=== PATIENT | male | born 1975 | race Caucasian/White ===

== ENCOUNTER 2018-07-07 11:42 | Emergency (ER) | payer OTHER ==
[~2018-07-07] VITALS: Ht 177.8 cm; Wt 90.7 kg
[2018-07-07] MEDS ORDERED: TRAZODONE HCL100 MG PO (11:52)
[2018-07-07] MEDS ORDERED: QUETIAPINE FUM100 MG PO (11:52)
[2018-07-07] MEDS ORDERED: PROZAC20 MG PO (11:53)
[2018-07-07 12:08] LABS: ABSOLUTE LYMPHOCYTES 0.6 thou/uL (0.8-5.3); ABSOLUTE MONOCYTES 0.5 thou/uL (0.0-1.2); ABSOLUTE NEUTROPHILS 4.3 thou/uL (1.6-8.1); BASOPHILS 0.5 %; EOSINOPHILS 0.8 %; HEMATOCRIT 47.4 % (42.0-52.0); HEMOGLOBIN 16.9 gm/dL (14.0-18.0); LYMPHOCYTES 11.2 %; MCH 34.2 pg (26.0-34.0); MCHC 35.6 g/dL (28.0-37.0); MCV 96.1 fL (80.0-100.0); MONOCYTES 8.5 %; MPV 7.1 fl. (7.2-11.1); NUCLEATED RBCS 0 /100WBC; PLATELET COUNT* 226 thou/uL (150-400); RBC 4.93 mil/uL (4.50-6.00); RDW-CV 14.7 % (10.5-14.5); WBC 5.4 thou/uL (4.0-11.0)
[2018-07-07 12:26] LABS: ANION GAP 11 mmol/L (7-16); BUN 8 mg/dL (7-18); CALCIUM 9.6 mg/dL (8.5-10.1); CHLORIDE 100 mmol/L (98-107); CO2 26 mmol/L (21-32); CREATININE 1.1 mg/dL (0.6-1.3); GLUCOSE 129 mg/dL (70-99); POTASSIUM 3.7 mmol/L (3.5-5.1); SODIUM 137 mmol/L (136-145)
[2018-07-07 12:31] LABS: ALBUMIN 4.2 g/dL (3.4-5.0); ALKALINE PHOSPHATASE 123 U/L (46-116); LIPASE 99 U/L (73-393); SGOT 44 U/L (15-37); SGPT 73 U/L (30-65); TOTAL PROTEIN 7.9 g/dL (6.4-8.2); TROPONIN-I LEVEL <0.06 ng/mL (<0.06)
[2018-07-07 13:20] VITALS: BP 136/92
--- NOTE | 2018-07-07 18:09 | EKG ---
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
== END 2018-07-07 13:20 | disposition home or self-care (01) ==
LOC: M.ERS 11:42
PROVIDERS: Family Medicine
DX: R10.31 Right lower quadrant pain (principal); R19.7 Diarrhea, unspecified

== ENCOUNTER 2018-07-07 20:08 | Emergency (ER) | payer OTHER ==
[~2018-07-07] VITALS: Ht 177.8 cm; Wt 110.4 kg
[~2018-07-07 20:08] MED LIST: PROZAC20 MG PO; QUETIAPINE FUM100 MG PO; TRAZODONE HCL100 MG PO
[2018-07-07 20:34] LABS: ABSOLUTE LYMPHOCYTES 1.1 thou/uL (0.8-5.3); ABSOLUTE NEUTROPHILS 6.9 thou/uL (1.6-8.1); BASOPHILS 0.3 %; EOSINOPHILS 0.5 %; HEMATOCRIT 46.7 % (42.0-52.0); HEMOGLOBIN 16.4 gm/dL (14.0-18.0); LYMPHOCYTES 11.7 %; MCH 33.9 pg (26.0-34.0); MCHC 35.2 g/dL (28.0-37.0); MCV 96.3 fL (80.0-100.0); MONOCYTES 11.1 %; NUCLEATED RBCS 0 /100WBC; PLATELET COUNT* 246 thou/uL (150-400); POLYS 76.4 %; RBC 4.85 mil/uL (4.50-6.00); RDW-CV 14.6 % (10.5-14.5); WBC 9.1 thou/uL (4.0-11.0)
[2018-07-07 20:42] LABS: CALCIUM 8.7 mg/dL (8.5-10.1); POTASSIUM 3.8 mmol/L (3.5-5.1)
[2018-07-07 20:47] LABS: ALBUMIN 4.4 g/dL (3.4-5.0); TOTAL BILIRUBIN 0.7 mg/dL (<0.1-1.0); TOTAL PROTEIN 8.3 g/dL (6.4-8.2)
[2018-07-08 00:51] LABS: ACETAMINOPHEN < 2 ug/mL (10-30); SALICYLATE < 2.8 mg/dL (2.8-20.0)
[2018-07-08 00:55] LABS: AMP/METHAMP Negative (Negative); BARBITURATES Negative (Negative); BENZODIAZEPINES Negative (Negative); COCAINE Negative (Negative); METHADONE Negative (Negative); OPIATES Negative (Negative); PCP Negative (Negative); THC Negative (Negative)
[2018-07-08 01:47] LABS: CALCIUM 8.3 mg/dL (8.5-10.1); POTASSIUM 3.6 mmol/L (3.5-5.1)
[2018-07-08 11:45] VITALS: BP 150/103
== END 2018-07-08 11:45 | disposition still patient (30) ==
LOC: M.ERS 20:08
PROVIDERS: Emergency Medicine
DX: R45.851 Suicidal ideations (principal); F10.129 Alcohol abuse with intoxication, unspecified; Y90.8 Blood alcohol level of 240 mg/100 ml or more

== ENCOUNTER 2018-07-26 13:03 | Emergency (ER) | payer OTHER ==
[~2018-07-26] VITALS: Ht 177.8 cm; Wt 107.5 kg
[2018-07-26 13:33] LABS: HEMATOCRIT 40.2 % (42.0-52.0); HEMOGLOBIN 14.1 gm/dL (14.0-18.0); MCH 34.1 pg (26.0-34.0); MCHC 35.1 g/dL (28.0-37.0); MCV 97.4 fL (80.0-100.0); MPV 7.3 fl. (7.2-11.1); NUCLEATED RBCS 0 /100WBC; PLATELET COUNT* 265 thou/uL (150-400); RBC 4.12 mil/uL (4.50-6.00); RDW-CV 13.8 % (10.5-14.5); WBC 8.8 thou/uL (4.0-11.0)
[2018-07-26 13:42] LABS: ANION GAP 6 mmol/L (7-16); BUN 15 mg/dL (7-18); CHLORIDE 104 mmol/L (98-107); CO2 28 mmol/L (21-32); CREATININE 1.5 mg/dL (0.6-1.3); GLUCOSE 86 mg/dL (70-99); POTASSIUM 3.7 mmol/L (3.5-5.1); SODIUM 138 mmol/L (136-145)
[2018-07-26 13:43] LABS: APTT 27.9 Seconds (25.0-31.3); PROTIME 10.4 Seconds (9.20-11.50)
[2018-07-26] MEDS ORDERED: WELBUTRIN (13:43)
[2018-07-26] MEDS ORDERED: GABAPENTIN 100100 MG (13:44)
[2018-07-26 13:54] LABS: SALICYLATE < 2.8 mg/dL (2.8-20.0)
[2018-07-26 13:56] LABS: ACETAMINOPHEN < 2 ug/mL (10-30); ALCOHOL < 10 mg/dL (<10)
[2018-07-26 14:01] LABS: ALBUMIN 3.9 g/dL (3.4-5.0); ALKALINE PHOSPHATASE 102 U/L (46-116); CK-MB MASS 5.2 ng/mL (<0.5-3.6); NT-PRO BRAIN NAT PEPTIDE 69 pg/mL (<300); SGOT 61 U/L (15-37); SGPT 136 U/L (30-65); TOTAL BILIRUBIN 0.5 mg/dL (<0.1-1.0); TOTAL PROTEIN 7.3 g/dL (6.4-8.2); TROPONIN-I LEVEL <0.06 ng/mL (<0.06)
[2018-07-26 14:04] LABS: ABSOLUTE BASOPHILS 0.1 thou/uL (0.0-0.2); ABSOLUTE EOSINOPHILS 0.1 thou/uL (0.0-0.7); ABSOLUTE LYMPHOCYTES 1.1 thou/uL (0.8-5.3); ABSOLUTE MONOCYTES 0.1 thou/uL (0.0-1.2); ABSOLUTE NEUTROPHILS 7.4 thou/uL (1.6-8.1); ATYPICAL LYMPHS 4 %; PLATELET ESTIMATE ADEQUATE
[2018-07-26 15:03] LABS: URINE BILIRUBIN NEGATIVE (Negative); URINE BLOOD NEGATIVE (Negative); URINE CLARITY CLEAR; URINE COLOR YELLOW; URINE GLUCOSE-RANDOM NEGATIVE (Negative); URINE KETONES NEGATIVE (Negative); URINE LEUKOCYTES-REFLEX NEGATIVE (Negative); URINE NITRITE-REFLEX NEGATIVE (Negative); URINE PROTEIN NEGATIVE (Negative); URINE SPECIFIC GRAVITY 1.025 (1.005-1.030); URINE UROBILINOGEN 0.2 E.U./dl (0.2-1.0)
[2018-07-26 15:13] LABS: AMP/METHAMP Negative (Negative); BARBITURATES Negative (Negative); BENZODIAZEPINES POSITIVE (Negative); COCAINE Negative (Negative); METHADONE Negative (Negative); OPIATES Negative (Negative); PCP Negative (Negative); THC Negative (Negative)
--- NOTE | 2018-07-26 16:25 | EKG ---
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: : 1975 Requested By: Javon Mederos Order Number: [id number] MD: Remington Jenkins Measurements Intervals [place] Rate: 105 P: 32 IN: 186 QRS: -13 QRSD: 102 T: 33 QT: 359 QTc: 475 Interpretive Statements Sinus tachycardia Baseline wander in lead(s) V6 Compared to ECG 07/07/2018 12:10:07 Sinus rhythm no longer present Electronically Signed On 07-26-2018 16:25:04 EYELET RIVETER by Remington Jenkins [email or web address] <ELECTRONICALLY SIGNED> By: Remington Jenkins MD, [facility] 07/26/18 1625 1309 1309 Remington Jenkins MD, FACC /EPI
[2018-07-26 16:50] VITALS: BP 122/84
== END 2018-07-26 16:53 | disposition home or self-care (01) ==
LOC: M.ERS 13:03
PROVIDERS: Family Medicine
DX: R41.82 Altered mental status, unspecified (principal); G47.00 Insomnia, unspecified; Z98.890 Other specified postprocedural states

== ENCOUNTER 2018-07-31 07:00 | Inpatient (IN) | payer OTHER ==
[2018-07-31] VITALS (16 sets, daily range): BP systolic 111–141; BP diastolic 78–103
[~2018-07-31] VITALS: Ht 180.3 cm; Wt 99.8 kg
[~2018-07-31 07:00] MED LIST changes: +NEURONTIN 400400 M1 PO; +WELLBUTRIN XL300 MG PO
[2018-07-31 07:51] LABS: ABSOLUTE EOSINOPHILS 0.1 thou/uL (0.0-0.7); ABSOLUTE MONOCYTES 0.9 thou/uL (0.0-1.2); ABSOLUTE NEUTROPHILS 5.9 thou/uL (1.6-8.1); BASOPHILS 0.3 %; EOSINOPHILS 0.7 %; HEMATOCRIT 39.8 % (42.0-52.0); LYMPHOCYTES 12.9 %; MCHC 35.3 g/dL (28.0-37.0); MCV 96.4 fL (80.0-100.0); MONOCYTES 11.2 %; MPV 7.4 fl. (7.2-11.1); NUCLEATED RBCS 0 /100WBC; PLATELET COUNT* 249 thou/uL (150-400); POLYS 74.9 %; RBC 4.13 mil/uL (4.50-6.00); RDW-CV 13.5 % (10.5-14.5); WBC 7.9 thou/uL (4.0-11.0)
[2018-07-31 07:56] LABS: CALCIUM 9.1 mg/dL (8.5-10.1); CREATININE 1.9 mg/dL (0.6-1.3); POTASSIUM 3.3 mmol/L (3.5-5.1)
[2018-07-31 08:01] LABS: TOTAL BILIRUBIN 1.4 mg/dL (<0.1-1.0); TOTAL PROTEIN 7.4 g/dL (6.4-8.2)
[2018-07-31 08:31] LABS: URINE BLOOD NEGATIVE (Negative); URINE CLARITY CLEAR; URINE COLOR DARK YELLOW; URINE GLUCOSE-RANDOM NEGATIVE (Negative); URINE KETONES 1+ (Negative); URINE LEUKOCYTES-REFLEX NEGATIVE (Negative); URINE NITRITE-REFLEX NEGATIVE (Negative); URINE PROTEIN TRACE (Negative); URINE SPECIFIC GRAVITY >= 1.030 (1.005-1.030)
[2018-07-31 08:34] LABS: ICTOTEST (BILI CONFIRMATORY) Negative (Negative); URINE BILIRUBIN 1+ (Negative)
[2018-07-31 08:43] LABS: SALICYLATE 2.9 mg/dL (2.8-20.0)
[2018-07-31 08:44] LABS: AMP/METHAMP POSITIVE (Negative); BARBITURATES Negative (Negative); BENZODIAZEPINES POSITIVE (Negative); COCAINE Negative (Negative); METHADONE Negative (Negative); OPIATES Negative (Negative); PCP Negative (Negative); THC Negative (Negative)
[2018-07-31 08:48] LABS: ACETAMINOPHEN < 2 ug/mL (10-30); ALCOHOL < 10 mg/dL (<10)
[2018-08-01] VITALS (12 sets, daily range): BP systolic 91–134; BP diastolic 54–91
[2018-08-01 04:18] LABS: ABSOLUTE EOSINOPHILS 0.1 thou/uL (0.0-0.7); ABSOLUTE LYMPHOCYTES 1.4 thou/uL (0.8-5.3); ABSOLUTE MONOCYTES 0.7 thou/uL (0.0-1.2); ABSOLUTE NEUTROPHILS 3.1 thou/uL (1.6-8.1); BASOPHILS 0.3 %; EOSINOPHILS 2.3 %; HEMATOCRIT 36.6 % (42.0-52.0); HEMOGLOBIN 13.1 gm/dL (14.0-18.0); LYMPHOCYTES 26.4 %; MCH 34.6 pg (26.0-34.0); MCHC 35.7 g/dL (28.0-37.0); MONOCYTES 13.7 %; MPV 7.6 fl. (7.2-11.1); NUCLEATED RBCS 0 /100WBC; PLATELET COUNT* 237 thou/uL (150-400); POLYS 57.3 %; RBC 3.78 mil/uL (4.50-6.00); RDW-CV 13.6 % (10.5-14.5); WBC 5.4 thou/uL (4.0-11.0)
[2018-08-01 04:42] LABS: CALCIUM 7.9 mg/dL (8.5-10.1); CREATININE 1.3 mg/dL (0.6-1.3); POTASSIUM 3.7 mmol/L (3.5-5.1)
[2018-08-01] MEDS ORDERED: PROZAC20 MG PO (08:39)
[2018-08-01] MEDS ORDERED: LORAZEPAM 1 MG T1 M1 PO (08:52)
[2018-08-02] VITALS (7 sets, daily range): BP systolic 104–130; BP diastolic 69–90
--- NOTE | 2018-08-02 09:54 | CON ---
[address] [address] CONSULTATION Name: ADOLFO SPARKS Room: [address] IN .R.#: [id number] Admission: 07/31/18 Attend Phys: Blake Guerrero MD Discharge: Date of : 71 Report #: [id number] THIS REPORT FOR: //name// CC: Blake Miramonteseney DATE OF SERVICE: 08/01/2018 HISTORY OF PRESENT ILLNESS: This is a 42-year-old male patient who was evaluated by me for altered mental status. He states he does not know what happened to him. He said he fell down. He does not know whether he passed out or just fell. We do not know whether any tonic-clonic activity happened during that episode. He never had this kind of episode before. REVIEW OF SYSTEMS: Positive for multiple psychiatric problems. He used to follow up with the psychiatrist. He stopped doing that. He is trying to make a followup appointment with them. He drinks a significant amount of alcohol. He indicates he works with the [employer] and is back to his baseline now. He is not complaining of any pain at all anywhere in the body. REVIEW OF SYSTEMS: A 14-point review of system was otherwise unremarkable. PAST MEDICAL HISTORY: Negative for this kind of spell. FAMILY HISTORY: Negative for congenital epilepsy. SOCIAL HISTORY: He does not smoke cigarettes but drinks significant amount of alcohol. PHYSICAL EXAMINATION: NEUROLOGICAL: Indicate that this patient is alert, responsive, oriented, able to follow simple and complex command. He feels his mentation is back to his baseline. His cranial nerve examination 2 through 12 looks unremarkable. Strength, sensation, reflexes and tone is symmetrical. There is no meningeal sign. NECK: There is no carotid bruit. CARDIAC: Examination is unremarkable. LUNGS: No respiratory difficulty was noticed. No rhonchi was noticed. VITAL SIGNS: Stable with a blood pressure of 100/62, pulse is 69 and temperature 97.4. LABORATORY DATA: His white count is normal at 5.4. His calcium is somewhat low at 7.9. His bilirubin is 1.4. His liver function is off. His albumin is normal. RADIOLOGICAL DATA: He did have a CT scan of [place] [address] CONSULTATION Name: ADOLFO SPARKS Room: [address] IN [facility]#: [id number] Admission: 07/31/18 Attend Phys: Blake Guerrero MD Discharge: Date of : 71 Report #: [id number] unremarkable. IMPRESSION: This patient had an episode of falling down. It is not clear what happened to this patient. His drugs screen is positive for amphetamines and he drinks a lot of alcohol. He should stop drinking alcohol and stop using any street drugs and he understands that. We will check an EEG and MRI to exclude any other pathology. His calcium is somewhat low and we will suggest correcting that. Until the EEG shows some abnormality, the main thing is going to be doing systemic workup as well as strongly advising the patient not to drink any alcohol or smoke and I did ask him to take seizure precautions. He may have some withdrawal from alcohol and from the drugs. So, he should not drive for a few weeks until that period is over and assuming that he stopped drinking alcohol and smoking. He should also avoid potentially epileptiform medication. RECOMMENDATIONS: 1. EEG. 2. MRI of the brain. 3. Look for any symptoms of withdrawal. 4. Until the workup shows something, I will not suggest anticonvulsants on him but rather asking him to stop drinking alcohol and using any drugs. Thank you very much for this referral. <ELECTRONICALLY SIGNED> By: Jorje Baugh MD 08/02/18 0954 1100 2036Jorje Baugh MD /nt
--- NOTE | 2018-08-16 13:52 | EEG ---
[address] [address] EEG STUDY REPORT Name: ADOLFO SPARKS Room: [address] IN .R#: [id number] Admission: 07/31/18 Attend Phys: Blake Guerrero MD Discharge: 08/02/18 Date of : 71 Report #: [id number] THIS REPORT FOR: //name// CC: Blake Guerrero [facility] DATE OF SERVICE: 08/01/2018 This patient is being evaluated for altered mental status. EEG was done by placing the electrode by standard 10-20 system of electrode placement. Both referential and sequential montages were used for recording. Background activity in this patient's EEG is about 9 Hz and 30 microvolt. It is a symmetrical activity. The patient became drowsy that is associated with bilateral slowing and vertex sharp waves. Photic stimulation is unremarkable. Throughout the record, no active epileptiform activity was noticed. IMPRESSION: This patient's EEG is intermixed with some theta range slowing on both sides. That is a nonspecific abnormality, which can occur with encephalopathy, effect of psychotropic medication, dementia, etc. No active epileptiform activity was noticed during this record. <ELECTRONICALLY SIGNED> By: Jorje Baugh MD 08/16/18 1352 1530 1536Jorje Baugh MD /nt
== END 2018-08-02 18:35 | disposition home or self-care (01) | DRG 917 ==
LOC: M.ERS 07:00 → M.2W 09:34 → M.TBA-ER 09:34 → M.ICU 10:32 → M.2W 08-02 01:33
PROVIDERS: Emergency Medicine; ADMIT Internal Medicine
DX: T43.621A Poisoning by amphetamines, accidental (unintentional), initial encounter (principal); G92 Toxic encephalopathy; G47.00 Insomnia, unspecified; F12.90 Cannabis use, unspecified, uncomplicated; E86.0 Dehydration; F32.9 Major depressive disorder, single episode, unspecified; F41.9 Anxiety disorder, unspecified; F19.90 Other psychoactive substance use, unspecified, uncomplicated; Z28.21 Immunization not carried out because of patient refusal; Y92.89 Other specified places as the place of occurrence of the external cause; Z79.899 Other long term (current) drug therapy

== ENCOUNTER 2018-09-13 16:33 | Emergency (ER) | payer OTHER ==
[~2018-09-13] VITALS: Ht 177.8 cm; Wt 90.7 kg
[~2018-09-13 16:33] MED LIST changes: +LORAZEPAM 1 MG T1 M1 PO
[2018-09-13 17:14] LABS: ABSOLUTE LYMPHOCYTES 1.3 thou/uL (0.8-5.3); ABSOLUTE MONOCYTES 0.6 thou/uL (0.0-1.2); ABSOLUTE NEUTROPHILS 5.5 thou/uL (1.6-8.1); BASOPHILS 0.6 %; EOSINOPHILS 0.1 %; HEMATOCRIT 44.8 % (42.0-52.0); LYMPHOCYTES 17.3 %; MCH 32.6 pg (26.0-34.0); MCHC 35.6 g/dL (28.0-37.0); MCV 91.4 fL (80.0-100.0); MONOCYTES 7.8 %; MPV 7.3 fl. (7.2-11.1); NUCLEATED RBCS 0 /100WBC; PLATELET COUNT* 303 thou/uL (150-400); POLYS 74.2 %; RDW-CV 13.8 % (10.5-14.5); WBC 7.4 thou/uL (4.0-11.0)
[2018-09-13 17:25] LABS: URINE BILIRUBIN NEGATIVE (Negative); URINE BLOOD TRACE (Negative); URINE CLARITY CLEAR; URINE COLOR STRAW; URINE GLUCOSE-RANDOM NEGATIVE (Negative); URINE KETONES NEGATIVE (Negative); URINE LEUKOCYTES-REFLEX NEGATIVE (Negative); URINE NITRITE-REFLEX NEGATIVE (Negative); URINE PROTEIN NEGATIVE (Negative); URINE SPECIFIC GRAVITY <= 1.005 (1.005-1.030); URINE UROBILINOGEN 0.2 E.U./dl (0.2-1.0)
[2018-09-13 17:26] LABS: ALBUMIN 3.9 g/dL (3.4-5.0); CALCIUM 9.1 mg/dL (8.5-10.1); CREATININE 0.9 mg/dL (0.6-1.3); POTASSIUM 3.2 mmol/L (3.5-5.1); TOTAL BILIRUBIN 0.5 mg/dL (<0.1-1.0); TOTAL PROTEIN 7.5 g/dL (6.4-8.2)
[2018-09-13 17:32] LABS: AMP/METHAMP Negative (Negative); BARBITURATES Negative (Negative); BENZODIAZEPINES Negative (Negative); COCAINE Negative (Negative); METHADONE Negative (Negative); OPIATES Negative (Negative); PCP Negative (Negative); THC Negative (Negative)
[2018-09-13 17:32] LABS: ALCOHOL 202 mg/dL (<10); SALICYLATE < 2.8 mg/dL (2.8-20.0)
[2018-09-13 17:33] LABS: ACETAMINOPHEN < 2 ug/mL (10-30)
[2018-09-13 19:20] VITALS: BP 146/101
== END 2018-09-13 19:20 | disposition home or self-care (01) ==
LOC: M.ERS 16:33
PROVIDERS: Emergency Medicine Emergency Medical Services
DX: F32.9 Major depressive disorder, single episode, unspecified (principal); R45.851 Suicidal ideations; G47.00 Insomnia, unspecified

== ENCOUNTER 2018-09-23 17:06 | Emergency (ER) | payer OTHER ==
[~2018-09-23] VITALS: Ht 177.8 cm; Wt 98.3 kg
[2018-09-23 18:02] LABS: ABSOLUTE EOSINOPHILS 0.1 thou/uL (0.0-0.7); ABSOLUTE LYMPHOCYTES 0.7 thou/uL (0.8-5.3); ABSOLUTE MONOCYTES 0.6 thou/uL (0.0-1.2); ABSOLUTE NEUTROPHILS 3.8 thou/uL (1.6-8.1); BASOPHILS 0.4 %; EOSINOPHILS 1.5 %; HEMATOCRIT 40.6 % (42.0-52.0); HEMOGLOBIN 14.1 gm/dL (14.0-18.0); LYMPHOCYTES 13.8 %; MCH 32.9 pg (26.0-34.0); MCHC 34.7 g/dL (28.0-37.0); MCV 94.7 fL (80.0-100.0); MONOCYTES 10.8 %; MPV 7.6 fl. (7.2-11.1); NUCLEATED RBCS 0 /100WBC; PLATELET COUNT* 208 thou/uL (150-400); POLYS 73.5 %; RBC 4.28 mil/uL (4.50-6.00); WBC 5.2 thou/uL (4.0-11.0)
[2018-09-23 18:09] LABS: APTT 26.1 Seconds (25.0-31.3); PROTIME 9.8 Seconds (9.20-11.50)
[2018-09-23 18:25] LABS: ALBUMIN 3.4 g/dL (3.4-5.0); CK-MB MASS 0.9 ng/mL (<0.5-3.6); CREATININE 1.6 mg/dL (0.6-1.3); POTASSIUM 3.9 mmol/L (3.5-5.1); TOTAL BILIRUBIN 0.3 mg/dL (<0.1-1.0)
[2018-09-23 18:37] LABS: ALCOHOL < 10 mg/dL (<10); SALICYLATE < 2.8 mg/dL (2.8-20.0)
[2018-09-23 18:38] LABS: ACETAMINOPHEN < 2 ug/mL (10-30)
[2018-09-23 19:35] VITALS: BP 130/70
[2018-09-23 19:42] LABS: URINE BILIRUBIN NEGATIVE (Negative); URINE BLOOD NEGATIVE (Negative); URINE CLARITY CLEAR; URINE COLOR YELLOW; URINE GLUCOSE-RANDOM NEGATIVE (Negative); URINE KETONES NEGATIVE (Negative); URINE LEUKOCYTES-REFLEX NEGATIVE (Negative); URINE NITRITE-REFLEX NEGATIVE (Negative); URINE PROTEIN NEGATIVE (Negative); URINE SPECIFIC GRAVITY 1.015 (1.005-1.030); URINE UROBILINOGEN 0.2 E.U./dl (0.2-1.0)
[2018-09-23 19:53] LABS: AMP/METHAMP Negative (Negative); BARBITURATES Negative (Negative); BENZODIAZEPINES Negative (Negative); COCAINE Negative (Negative); METHADONE Negative (Negative); OPIATES Negative (Negative); PCP Negative (Negative); THC Negative (Negative)
--- NOTE | 2018-09-24 10:39 | EKG ---
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 CHASE : 1975 Requested By: Enzo Gray Order Number: [id number] MD: Remington Jenkins Measurements Intervals [place] Rate: 108 P: 43 CO: 158 QRS: 2 QRSD: 88 T: 32 QT: 366 QTc: 491 Interpretive Statements Sinus tachycardia Borderline prolonged QT interval Compared to ECG 07/26/2018 13:09:33 No significant changes Electronically Signed On 09-24-2018 10:39:39 CDT by Remington Jenkins [email or web address] <ELECTRONICALLY SIGNED> By: Remington Jenkins MD, [facility] 09/24/18 1039 09 09 Remington Jenkins MD, FACC /EPI
== END 2018-09-23 19:35 | disposition home or self-care (01) ==
LOC: M.ERS 17:06
PROVIDERS: Emergency Medicine Emergency Medical Services
DX: R41.82 Altered mental status, unspecified (principal); F32.9 Major depressive disorder, single episode, unspecified

== ENCOUNTER 2018-10-05 23:06 | Emergency (ER) | payer OTHER ==
[~2018-10-05] VITALS: Ht 182.9 cm; Wt 99.8 kg
[2018-10-05 23:48] LABS: URINE BILIRUBIN NEGATIVE (Negative); URINE BLOOD NEGATIVE (Negative); URINE CLARITY CLEAR; URINE COLOR YELLOW; URINE GLUCOSE-RANDOM NEGATIVE (Negative); URINE KETONES NEGATIVE (Negative); URINE LEUKOCYTES-REFLEX NEGATIVE (Negative); URINE NITRITE-REFLEX NEGATIVE (Negative); URINE PROTEIN NEGATIVE (Negative); URINE SPECIFIC GRAVITY <= 1.005 (1.005-1.030); URINE UROBILINOGEN 0.2 E.U./dl (0.2-1.0)
[2018-10-05 23:54] LABS: ABSOLUTE EOSINOPHILS 0.1 thou/uL (0.0-0.7); ABSOLUTE MONOCYTES 0.5 thou/uL (0.0-1.2); ABSOLUTE NEUTROPHILS 5.1 thou/uL (1.6-8.1); BASOPHILS 0.5 %; EOSINOPHILS 0.7 %; HEMATOCRIT 50.3 % (42.0-52.0); HEMOGLOBIN 17.6 gm/dL (14.0-18.0); LYMPHOCYTES 26.4 %; MCH 32.9 pg (26.0-34.0); MCV 93.9 fL (80.0-100.0); MONOCYTES 6.6 %; MPV 7.1 fl. (7.2-11.1); NUCLEATED RBCS 0 /100WBC; PLATELET COUNT* 275 thou/uL (150-400); POLYS 65.8 %; RBC 5.36 mil/uL (4.50-6.00); RDW-CV 14.8 % (10.5-14.5); WBC 7.7 thou/uL (4.0-11.0)
[2018-10-05 23:55] LABS: AMP/METHAMP Negative (Negative); BENZODIAZEPINES Negative (Negative); COCAINE Negative (Negative); METHADONE Negative (Negative); PCP Negative (Negative); THC Negative (Negative)
[2018-10-06 00:09] LABS: BARBITURATES Negative (Negative); OPIATES Negative (Negative)
[2018-10-06 00:12] LABS: ALBUMIN 4.1 g/dL (3.4-5.0); CALCIUM 8.9 mg/dL (8.5-10.1); CREATININE 0.9 mg/dL (0.6-1.3); POTASSIUM 3.4 mmol/L (3.5-5.1); TOTAL BILIRUBIN 0.6 mg/dL (<0.1-1.0)
[2018-10-06 00:14] LABS: ACETAMINOPHEN < 2 ug/mL (10-30); ALCOHOL 386 mg/dL (<10); SALICYLATE < 2.8 mg/dL (2.8-20.0)
[2018-10-06 02:40] VITALS: BP 144/99
== END 2018-10-06 02:41 | disposition home or self-care (01) ==
LOC: M.ERS 23:06
PROVIDERS: Emergency Medicine
DX: S00.81XA Abrasion of other part of head, initial encounter (principal); F10.129 Alcohol abuse with intoxication, unspecified; G47.00 Insomnia, unspecified; F32.9 Major depressive disorder, single episode, unspecified; Y90.0 Blood alcohol level of less than 20 mg/100 ml; W08.XXXA Fall from other furniture, initial encounter; Y92.89 Other specified places as the place of occurrence of the external cause; Y93.89 Activity, other specified; Y99.8 Other external cause status

== ENCOUNTER 2018-10-06 18:32 | Emergency (ER) | payer OTHER ==
[~2018-10-06] VITALS: Ht 177.8 cm; Wt 94.8 kg
[2018-10-06 19:08] LABS: ABSOLUTE LYMPHOCYTES 1.6 thou/uL (0.8-5.3); ABSOLUTE MONOCYTES 0.7 thou/uL (0.0-1.2); ABSOLUTE NEUTROPHILS 4.6 thou/uL (1.6-8.1); BASOPHILS 0.5 %; EOSINOPHILS 0.4 %; HEMATOCRIT 45.1 % (42.0-52.0); HEMOGLOBIN 16.1 gm/dL (14.0-18.0); LYMPHOCYTES 22.5 %; MCH 33.2 pg (26.0-34.0); MCHC 35.8 g/dL (28.0-37.0); MCV 92.8 fL (80.0-100.0); MONOCYTES 10.4 %; MPV 6.9 fl. (7.2-11.1); NUCLEATED RBCS 0 /100WBC; PLATELET COUNT* 265 thou/uL (150-400); POLYS 66.2 %; RBC 4.86 mil/uL (4.50-6.00); RDW-CV 14.4 % (10.5-14.5)
[2018-10-06 19:20] LABS: URINE BILIRUBIN NEGATIVE (Negative); URINE BLOOD NEGATIVE (Negative); URINE CLARITY CLEAR; URINE COLOR YELLOW; URINE GLUCOSE-RANDOM NEGATIVE (Negative); URINE KETONES NEGATIVE (Negative); URINE LEUKOCYTES-REFLEX NEGATIVE (Negative); URINE NITRITE-REFLEX NEGATIVE (Negative); URINE PROTEIN NEGATIVE (Negative); URINE SPECIFIC GRAVITY <= 1.005 (1.005-1.030); URINE UROBILINOGEN 0.2 E.U./dl (0.2-1.0)
[2018-10-06 19:22] LABS: CALCIUM 8.5 mg/dL (8.5-10.1); CREATININE 0.9 mg/dL (0.6-1.3); POTASSIUM 3.4 mmol/L (3.5-5.1); TOTAL BILIRUBIN 0.7 mg/dL (<0.1-1.0); TOTAL PROTEIN 7.6 g/dL (6.4-8.2)
[2018-10-06 19:23] LABS: ALCOHOL 366 mg/dL (<10); SALICYLATE < 2.8 mg/dL (2.8-20.0)
[2018-10-06 19:24] LABS: AMP/METHAMP Negative (Negative); BARBITURATES Negative (Negative); BENZODIAZEPINES Negative (Negative); COCAINE Negative (Negative); METHADONE Negative (Negative); OPIATES Negative (Negative); PCP Negative (Negative); THC Negative (Negative)
[2018-10-06 19:25] LABS: ACETAMINOPHEN < 2 ug/mL (10-30)
[2018-10-06 19:58] VITALS: BP 135/94
== END 2018-10-06 20:04 | disposition home or self-care (01) ==
LOC: M.ERS 18:32
PROVIDERS: Family Medicine
DX: F10.129 Alcohol abuse with intoxication, unspecified (principal); F32.9 Major depressive disorder, single episode, unspecified; G47.00 Insomnia, unspecified

== ENCOUNTER 2019-08-31 18:08 | Inpatient (IN) | payer OTHER ==
[~2019-08-31] VITALS: Ht 172.7 cm; Wt 95.7 kg
[~2019-08-31 18:08] MED LIST changes: +DESYREL300 MG PO; +PROZAC40 MG PO; -TRAZODONE HCL100 MG PO
[2019-08-31 18:17] VITALS: BP 133/82
[2019-08-31] MEDS ORDERED: NEURONTIN 300M300 M2 PO (18:25)
[2019-08-31] MEDS ORDERED: ABILIFY10 MG PO (18:26)
[2019-08-31] MEDS ORDERED: BUSPIRONE HCL10 MG PO (18:26)
[2019-08-31 18:33] LABS: BE -1.5 mmol/L (-2 to +3); PCO2 31.1 mmHg (35.0-45.0); PO2 103.8 mmHg (75.0-100.0); pH 7.454 (7.340-7.450)
[2019-08-31 18:42] LABS: APTT 25.9 Seconds (25.0-31.3); PROTIME 10.7 Seconds (9.20-11.50)
[2019-08-31 18:43] LABS: CALCIUM 8.8 mg/dL (8.5-10.1); POTASSIUM 3.3 mmol/L (3.5-5.1)
[2019-08-31 18:48] LABS: ACETAMINOPHEN < 2 ug/mL (10-30); ALCOHOL < 10 mg/dL (<10); SALICYLATE < 2.8 mg/dL (2.8-20.0)
[2019-08-31 18:49] LABS: ABSOLUTE EOSINOPHILS 0.2 thou/uL (0.0-0.7); ABSOLUTE LYMPHOCYTES 0.9 thou/uL (0.8-5.3); ABSOLUTE MONOCYTES 0.5 thou/uL (0.0-1.2); ABSOLUTE NEUTROPHILS 4.5 thou/uL (1.6-8.1); BASOPHILS 0.6 %; EOSINOPHILS 3.1 %; HEMATOCRIT 40.5 % (42.0-52.0); HEMOGLOBIN 14.7 gm/dL (14.0-18.0); LYMPHOCYTES 15.5 %; MCH 32.8 pg (26.0-34.0); MCHC 36.2 g/dL (28.0-37.0); MCV 90.6 fL (80.0-100.0); MPV 8.2 fl. (7.2-11.1); NUCLEATED RBCS 0 /100WBC; PLATELET COUNT* 216 thou/uL (150-400); POLYS 72.8 %; RBC 4.48 mil/uL (4.50-6.00); WBC 6.1 thou/uL (4.0-11.0)
[2019-08-31 18:56] LABS: ALBUMIN 4.1 g/dL (3.4-5.0); CK-MB MASS 10.9 ng/mL (<0.5-3.6); TOTAL BILIRUBIN 0.7 mg/dL (<0.1-1.0); TOTAL PROTEIN 7.7 g/dL (6.4-8.2)
[2019-08-31 19:49] LABS: URINE BILIRUBIN NEGATIVE (Negative); URINE BLOOD NEGATIVE (Negative); URINE CLARITY CLEAR; URINE COLOR YELLOW; URINE GLUCOSE-RANDOM NEGATIVE (Negative); URINE KETONES TRACE (Negative); URINE LEUKOCYTES-REFLEX NEGATIVE (Negative); URINE NITRITE-REFLEX NEGATIVE (Negative); URINE PROTEIN TRACE (Negative); URINE SPECIFIC GRAVITY >= 1.030 (1.005-1.030); URINE UROBILINOGEN 0.2 E.U./dl (0.2-1.0)
[2019-08-31 20:00] LABS: AMP/METHAMP Negative (Negative); BARBITURATES Negative (Negative); BENZODIAZEPINES Negative (Negative); COCAINE Negative (Negative); METHADONE Negative (Negative); OPIATES Negative (Negative); PCP Negative (Negative); THC Negative (Negative)
[2019-08-31 20:50] VITALS: BP 144/85
[2019-08-31 21:09] VITALS: BP 148/84
[2019-08-31 22:00] VITALS: BP 133/86
[2019-08-31 23:01] VITALS: BP 111/68
[2019-09-01] VITALS (19 sets, daily range): BP systolic 106–163; BP diastolic 64–89
--- NOTE | 2019-09-01 04:03 | NUR ---
RECIEVED PT FROM ER, ON NC AT 2LPM. NOTICED HIS SAT WAS 88%, NC FLOW INCREASE TO 5LPM. PT LUNGS SOUDED COARSE/CRACKLES AND PT WAS AGITATED AND RESTLESS. INFORM HIMS DOCTOR WITH ORDER OF LASIX 40MG IV AND PRN ATIVAN AND HALDOL. PT SAT IMPROVE AND LESS AGITATED BUT STILL WITH SOME JERKY MOVEMENTS AND TREMORS. LOMELI CATH INSERTED ORDERED. PRN BIPAP. IV FLUIDS DC. TALKED TO POISON CONTROL CENTER STAFF AND GAVE UPDATES REGARDING PT. STAFF SUGGESTED NOT TO GIVE HALDOL. STILL CONFUSED AND ALWAYS MUMBLING. SIEZURE PRECATION INITIATED. CONTINUE MONITORING AND TOWARD GOALS.
[2019-09-01 05:52] LABS: HEMATOCRIT 39.7 % (42.0-52.0); HEMOGLOBIN 14.2 gm/dL (14.0-18.0); MCH 32.6 pg (26.0-34.0); MCHC 35.8 g/dL (28.0-37.0); MCV 91.1 fL (80.0-100.0); MPV 7.8 fl. (7.2-11.1); RBC 4.36 mil/uL (4.50-6.00); RDW-CV 14.1 % (10.5-14.5); WBC 13.1 thou/uL (4.0-11.0)
[2019-09-01 06:03] LABS: CALCIUM 8.6 mg/dL (8.5-10.1); CREATININE 1.8 mg/dL (0.6-1.3); MAGNESIUM 1.8 mg/dL (1.8-2.4); PHOSPHORUS* 3.3 mg/dL (2.5-4.9); POTASSIUM 3.6 mmol/L (3.5-5.1)
--- NOTE | 2019-09-01 10:30 | NUR ---
Pt lives at home with parents. Pt not able to provide answers or discussion for complete CM assessment at this time. SW to follow to provide resources and support services when needed and when pt is more able to accept information.
--- NOTE | 2019-09-01 16:36 | EKG ---
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: : 1975 Requested By: Javon Mederos Order Number: [id number] MD: Michael Darden Measurements Intervals [place] Rate: 102 P: 29 UT: 189 QRS: -23 QRSD: 104 T: 46 QT: 366 QTc: 477 Interpretive Statements Sinus tachycardia Borderline left axis deviation Borderline prolonged QT interval Compared to ECG 09/23/2018 17:10:24 No significant changes Electronically Signed On 09-01-2019 16:35:22 CDT by Michael Darden [email or web address] <ELECTRONICALLY SIGNED> By: Michael Darden MD, FAC 09/01/19 1635 54 54 Michael Darden MD, [facility] /EPI
[2019-09-01 16:40] LABS: URINE POTASSIUM-RANDOM 54.9 mmol/L
[2019-09-02] VITALS (21 sets, daily range): BP systolic 106–137; BP diastolic 72–104
--- NOTE | 2019-09-02 05:04 | NUR ---
ASSUMED CARE AT 1900H, ON NC AT 4LPM AND TOLERATED. PT'S INVOLUNTARY MOVEMENT DECREASE OR GONE AFTER GIVING ATIVAN. PT WAS SLEEPING SOMETIMES. STILL MUMBLING WORDS BUT KNOWS HIS NAME AND OBEYS COMMAND AT TIMES. SAFETY MAINTAINED AND ORIETED PT ALL THE TIME. CONTINUE MONITORING AND TOWARD GOALS.
[2019-09-02 08:22] LABS: ALBUMIN 3.6 g/dL (3.4-5.0); CALCIUM 8.4 mg/dL (8.5-10.1); CREATININE 1.4 mg/dL (0.6-1.3); MAGNESIUM 2.2 mg/dL (1.8-2.4); POTASSIUM 3.9 mmol/L (3.5-5.1); TOTAL BILIRUBIN 0.5 mg/dL (<0.1-1.0); TOTAL PROTEIN 6.6 g/dL (6.4-8.2)
--- NOTE | 2019-09-02 13:21 | NUR ---
ICU rounds: 1:1 sitter for SI. Multiple drug OD. 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 Pt has since been laid off, which prompted him moving in with his parents. Pt was in drug tx about 10 months ago in [place], [place], parents paid for it. No hx of inpt mental health treatment. Parents do not want Pt to return to their home, d/t his drug and alcohol issues. CM discussed possible dc options, pending Pt's progress and psych eval. Parents want to remain informed of Pt's medical condition and dc plan. Following.
[2019-09-02 15:26] LABS: SMEAR FOR EOSINOPHILS No Eosinophils Seen
--- NOTE | 2019-09-02 17:22 | NUR ---
PT WITH DECREASED RESTLESNESS TRHOUGH OUT THE DAY. SITTER AT BEDSIDE FOR SAFETY. PT ENCOURAGED TO TAKE PO INTAKE. PT UNABLE TO FOLLOW DIRECTIONS TO DO SO. WAS ABLE TO SWALLOW A PILL WITH WATER. DENIES PAIN. SLOW TO PROGRESS TOWARDS GOALS.
[2019-09-03] VITALS (15 sets, daily range): BP systolic 114–158; BP diastolic 80–113
[2019-09-03 03:38] LABS: ALBUMIN 2.9 g/dL (3.4-5.0); CALCIUM 7.1 mg/dL (8.5-10.1); CREATININE 1.1 mg/dL (0.6-1.3); MAGNESIUM 1.9 mg/dL (1.8-2.4); POTASSIUM 3.2 mmol/L (3.5-5.1); TOTAL BILIRUBIN 0.4 mg/dL (<0.1-1.0); TOTAL PROTEIN 5.9 g/dL (6.4-8.2)
[2019-09-03 03:46] LABS: MCH 32.6 pg (26.0-34.0); MCHC 34.8 g/dL (28.0-37.0); MCV 93.6 fL (80.0-100.0); MPV 8.3 fl. (7.2-11.1); RBC 3.63 mil/uL (4.50-6.00); RDW-CV 13.9 % (10.5-14.5); WBC 8.8 thou/uL (4.0-11.0)
[2019-09-03 03:47] LABS: HEMOGLOBIN 11.9 gm/dL (14.0-18.0)
[2019-09-03 05:18] LABS: HEMATOCRIT 38.6 % (42.0-52.0); HEMOGLOBIN 13.4 gm/dL (14.0-18.0); MCH 32.2 pg (26.0-34.0); MCHC 34.7 g/dL (28.0-37.0); MCV 92.7 fL (80.0-100.0); MPV 7.8 fl. (7.2-11.1); RBC 4.16 mil/uL (4.50-6.00); WBC 11.3 thou/uL (4.0-11.0)
[2019-09-03 05:40] LABS: ALBUMIN 3.3 g/dL (3.4-5.0); CALCIUM 8.4 mg/dL (8.5-10.1); MAGNESIUM 2.2 mg/dL (1.8-2.4); POTASSIUM 3.7 mmol/L (3.5-5.1); TOTAL BILIRUBIN 0.4 mg/dL (<0.1-1.0); TOTAL PROTEIN 6.7 g/dL (6.4-8.2)
--- NOTE | 2019-09-03 07:30 | NUR ---
0730 ASSUMED CARE OF PT. PLEASE SEE DOCUMENTED ASSESSMENT. PT IS AWAKE, CONFUSED, AND RESTLESS. REORIENTATION PROVIDED TO PT. PT HAS OCCASIONAL SPASTIC MOVEMENTS. OCCASIONAL PURPOSEFUL MOVEMENTS. PT VERY IMPULSIVE. REQUIRES FREQUENT REORIENTATION AND REDIRECTION. ROOM AIR. PT ASSISTED UP TO CHAIR BREAKFAST. BATH COMPLETED. GAIT UNSTEADY. PT WILL OFTEN ATTEMPT TO GRAB AT SOMETHING EITHER IN THE AIR, ON HIS BODY, OR ON THE FLOOR. GOALS THIS SHIFT: SAFETY, NUTRITION, INCREASE ACTIVITY TOLERATED, REORIENTATION, AND TX OUT OF ICU.
--- NOTE | 2019-09-03 07:40 | NUR ---
CLARIFICATION OBTAINED FROM DR. ENCARNACION. PT IS A 1:1 PATIENT AND WILL REQUIRE 1:1 NURSING CARE.
--- NOTE | 2019-09-03 09:30 | NUR ---
ATTEMPTED TO FEED PT BREAKFAST. PT WILL SOMETIMES OPEN MOUTH AND RECEIVE FOOD BUT OTHER TIMES CLAMP HIS MOUTH SHUT OR BITE DOWN ON FORK. PT HAS UNSTEADY GAIT AND REQUIRES GAIT BELT FOR SAFETY W/TRANSFERS. PARENTS UPDATED ON PLAN OF CARE FOR THE DAY. REMAINS ON 1:1 SUICIDE PRECAUTIONS.
--- NOTE | 2019-09-03 18:18 | NUR ---
OUTCOME SUMMARY: PROGRESSING TOWARDS GOALS. ABLE TO INCREASE ACTIVITY TODAY. UP OUT OF BED FOR APPROXIMATELY 2 HOURS THREE TIMES TODAY AT BREAKFAST, LUNCH, AND DINNER. TOLERATED WELL. GAIT REMAINS UNSTEADY AND PT BELIEVES HE IS ABLE TO WALK STEADY BUT REQUIRES GAIT BELT AND ONE ASSIST FOR WALKING/TRANSFERS. APPETITE INCREASED AT LUNCH AND DINNER. PT STILL REQUIRES ASSISTANCE W/FEEDING BUT LATE THIS EVENING ABLE TO GRAB AHOLD OF WATER CUP AND BRING THE CUP TO HIS MOUTH ON HIS OWN. ABLE TO SLEEP WELL FOR SEVERAL HOURS THIS AFTERNOON W/NO INTERRUPTIONS. POSSIBLE TRANSITION TO [facility] TOMORROW? PARENTS VISITED TWICE THIS SHIFT. UPDATED ON PLAN OF CARE. PT ABLE TO REST WELL W/WEIGHTED BLANKET THAT HIS MOTHER PROVIDED FOR HIM. GOOD UOP. USED INCENTIVE SPIROMETER TWICE TODAY W/ASSISTANCE. OVERALL PROGNOSIS: FAIR. PT WILL MOST LIKELY NEED REHAB AGAIN AT DISCHARGE. PARENTS DO NOT WISH FOR HIM TO COME BACK AND LIVE W/THEM. YOUNGER BROTHER, VINICIO, FROM [place], VISITED TODAY WELL.
[2019-09-04 04:23] LABS: CALCIUM 8.2 mg/dL (8.5-10.1); MAGNESIUM 2.3 mg/dL (1.8-2.4); POTASSIUM 3.5 mmol/L (3.5-5.1)
[2019-09-04 14:26] VITALS: BP 136/99
[2019-09-04 14:27] VITALS: BP 134/101
--- NOTE | 2019-09-04 15:44 | NUR ---
PT VERY RESTLESS, CONFUSED , AND IMPULSIVE. REQUIRES CONSTANT MONITORING FOR HIS SAFETY. ABLE TO STATE THAT HE IS IN [place]. DENIES PAIN. PRN ATIVAN AND BENEDRYL GIVEN FOR ANXIETY. REPORT CALLED TO [facility] FOR TRANSFER TO ROOM 229.
[2019-09-04 16:48] VITALS: BP 150/107
[2019-09-04 19:35] VITALS: BP 150/89
--- NOTE | 2019-09-05 02:21 | NUR ---
ASSUMED CARE OF PT AT 1900. PT IS CONSTANTLY RESTLESS AND HALLUCINATING. PT IS TRYING TO TAKE HIS CLOTHES OFF AND GO OUT INTO THE HALLWAY. 2 STAFF HAVE BEEN HOLDING PT IN BED FOR HOURS. PT HAS BEEN GIVEN IM HALDOL. PO ATIVAN, BENADRL AND MELATONIN. PT IS CONSTANTLY MOVING CONSTANTLY TRYING TO GET OUT OF BED. AND CONSTANTLY TRYING TO PULL OUT ANY AND ALL MEDICAL DEVICES SUCH IV AND LOMELI. PT ALSO EATING HIS BED PAD AND TRYING TO SWALLOW IT. PTS EYES ARE COMPLETELY DILATED. PT IS COMPLETELY DISORIENTED. PT PULLED OUR HIS IV. I TOOK HIS LOMELI OUT BECAUSE HE IS TRYING TO PULL IT OUT.
[2019-09-05 09:54] LABS: HEMOGLOBIN 13.6 gm/dL (14.0-18.0)
[2019-09-05 09:56] LABS: ABSOLUTE LYMPHOCYTES 0.9 thou/uL (0.8-5.3); ABSOLUTE MONOCYTES 0.7 thou/uL (0.0-1.2); ABSOLUTE NEUTROPHILS 6.9 thou/uL (1.6-8.1); BASOPHILS 0.3 %; EOSINOPHILS 0.2 %; HEMATOCRIT 37.6 % (42.0-52.0); LYMPHOCYTES 10.3 %; MCH 32.5 pg (26.0-34.0); MCHC 36.3 g/dL (28.0-37.0); MCV 89.5 fL (80.0-100.0); MONOCYTES 8.5 %; MPV 7.7 fl. (7.2-11.1); NUCLEATED RBCS 0 /100WBC; PLATELET COUNT* 225 thou/uL (150-400); POLYS 80.7 %; RBC 4.19 mil/uL (4.50-6.00); RDW-CV 13.9 % (10.5-14.5); WBC 8.5 thou/uL (4.0-11.0)
[2019-09-05 10:05] LABS: ALBUMIN 3.7 g/dL (3.4-5.0); CALCIUM 8.7 mg/dL (8.5-10.1); CREATININE 1.3 mg/dL (0.6-1.3); POTASSIUM 3.2 mmol/L (3.5-5.1); TOTAL BILIRUBIN 1.1 mg/dL (<0.1-1.0); TOTAL PROTEIN 7.2 g/dL (6.4-8.2)
--- NOTE | 2019-09-05 11:00 | NUR ---
CONTINUE TO FOLLOW, PER NURSE, PT CONFUSED AND ONLY ORIENTED TO SELF. SITTER AT BS, HAD PSYCH CONSULT TODAY. REMAIN IN ISOLATION. FATHER HERE, STATES PT HAS BEEN TO [facility] THAT HE PAID FOR AND THAT THEY 'CANNOT HANDLE' PT IN THEIR HOME, HOPING FOR PLACEMENT. CONFIRMED PT IS UNINSURED. WILL FOLLOW
[2019-09-05 14:21] VITALS: BP 112/90
--- NOTE | 2019-09-05 17:06 | NUR ---
PT HAVING SOME BLOODY URINE FROM PULLING ON LOMELI CATHETER BEFORE IT WAS DISOCNTINUED. WILL PASS ONTO PYSICIAN.
[2019-09-06 04:17] LABS: ABSOLUTE EOSINOPHILS 0.1 thou/uL (0.0-0.7); ABSOLUTE LYMPHOCYTES 1.7 thou/uL (0.8-5.3); ABSOLUTE MONOCYTES 0.7 thou/uL (0.0-1.2); ABSOLUTE NEUTROPHILS 6.2 thou/uL (1.6-8.1); BASOPHILS 0.2 %; EOSINOPHILS 1.4 %; HEMATOCRIT 38.8 % (42.0-52.0); LYMPHOCYTES 19.8 %; MCH 32.7 pg (26.0-34.0); MCHC 36.1 g/dL (28.0-37.0); MCV 90.4 fL (80.0-100.0); MONOCYTES 8.3 %; MPV 7.7 fl. (7.2-11.1); NUCLEATED RBCS 0 /100WBC; PLATELET COUNT* 235 thou/uL (150-400); POLYS 70.3 %; RBC 4.29 mil/uL (4.50-6.00); RDW-CV 13.7 % (10.5-14.5); WBC 8.8 thou/uL (4.0-11.0)
[2019-09-06 04:30] VITALS: BP 123/78
[2019-09-06 04:41] LABS: ALBUMIN 3.3 g/dL (3.4-5.0); CALCIUM 8.1 mg/dL (8.5-10.1); TOTAL BILIRUBIN 0.7 mg/dL (<0.1-1.0); TOTAL PROTEIN 6.7 g/dL (6.4-8.2)
--- NOTE | 2019-09-06 07:53 | NUR ---
PATIENT TRANSFERRED TO ROOM 116 FROM TELEMETRY. REPORT GIVEN FROM NIGHT TELEMETRY NURSE. VSS ON RA. SITTER IN ROOM WITH PATIENT. PATIENT HAS SLEPT MOST OF THE NIGHT. PATIENT IS UP SBA TO THE BATHROOM. ASSESSMENT CHARTED. HOURLY ROUNDS MADE. WILL CONTINUE WITH PLAN OF CARE AND NURSING TO MONITOR.
[2019-09-06 09:32] VITALS: BP 133/94
[2019-09-06 16:00] VITALS: BP 136/98
--- NOTE | 2019-09-06 16:00 | NUR ---
TELE PSYCH COMPLETED YESTERDAY. INPT.PSYCH PLACEMENT RECOMMENDED. GAVE ORDER THAT PT.STABLE FOR TRANSFER. CM WORKING ON FINDING PSYCH FACILITY THAT CAN ACCEPT PT. UNABLE TO FAX ANY INFORMATION,HOWEVER, TO INPT.FACILITIES DUE TO FAX MACHINE NOT WORKING PROPERLY IN CM OFFICE. WILL FAX IN AM.
--- NOTE | 2019-09-06 17:30 | NUR ---
ASSUMED CARE OF PATIENT AT APPROX 0730. ALERT AND ORIENTED X4. ASSESSMENT COMPLETED AND CHARTED. VSS ON ROOM AIR. PATIENT COMPLAINING OF ANXIETY THIS SHIFT. GIVEN ONE DOSE OF ATIVAN. SITTER IN ROOM. HOURLY ROUNDS. WILL CONTINUE WITH PLAN OF CARE.
[2019-09-06 21:00] VITALS: BP 146/107
--- NOTE | 2019-09-07 08:10 | NUR ---
PATIENT HAS SLEPT WELL THROUGHOUT MOST OF THE NIGHT. VSS ON RA. MEDICATIONS GIVEN ORDERED AND CHARTED. SITTER IN ROOM WITH PATIENT. PATIENT IS UP WITH SBA TO THE BATHROOM. HOURLY ROUNDS MADE. WILL CONTINUE WITH PLAN OF CARE AND NURSING TO MONITOR.
[2019-09-07 08:20] VITALS: BP 126/98
--- NOTE | 2019-09-07 12:04 | NUR ---
FAXED REFERRAL TO: [facility], [place]--[phone];[phone] [facility], [phone]; [phone] [facility] [phone]; [phone] [facility] [phone]; [phone] [facility] [phone]; [phone] [facility] P-[phone], [phone]; f-[phone] WILL CONFIRM THEY RECEIVED AND BED AVAILABILITY.
--- NOTE | 2019-09-07 12:12 | NUR ---
Nutrition: Pt admitted with drug OD, AMS. Seen for LOS. He denied any nutrition questions/concerns. Regular diet. Albumin 3.3. Wt: 211#. Low nutrition risk.
--- NOTE | 2019-09-07 15:07 | NUR ---
TAHIRA F/U WITH GERALD @ [facility] SHE HAD QUESTIONS. GERALD WANTED TO KNOW IF PT IS CURRENTLY SUICIDAL AND IF WAS STILL PRESENTING W/BEHAVIORS, "STILL TAKING HIS CLOTHES OFF AND BEING INAPPROPRIATE?" CM RE-ASSESSED PT. PT STATES HE IS STILL HAVING SUICIDE IDEATIONS W/PLAN AND INTENT TO "GO THROUGH MY ARM." PT STATES SI THOUGHS ARE SEVERAL TIMES A DAY, LASTING FOR SEVERAL MINUTES AT AT A TIME. PT STATES HE CAN CONTROL THOUGHTS W/SOME DIFFICULTY. PT GIVES REASON FOR GOING THROUGH W/SI IS "A LITTLE BIT OF BOTH" TO STOP THE PX AND FOR ATTENTION. PT STATES HE IS HAVING AVH AND PARANOIA. PT IS NOT PRESENTING W/BEHAVIORS. NO LONGER COMBATIVE OR REMOVING CLOTHES PER 1:1 STAFF MEMBER SITTING W/PT. CM FAXED PROGRESSIVE NOTES TO GERALD [phone].
--- NOTE | 2019-09-07 15:54 | NUR ---
TAHIRA ADAM FROM [facility]. [facility] ACCEPTING REFERRAL; HOWEVER, [facility] HAS PRIORITY OVER THEIR BEDS. Tank MELGOZA/Swathi OUTPATIENT PROGRAM COORDINATOR, TO SEND REFERRAL PACKET (f) [phone].
[2019-09-07 16:00] VITALS: BP 144/109
--- NOTE | 2019-09-07 18:42 | NUR ---
ASSUMED CARE OF PATIENT AT APPROX 0730. ALERT AND ORIENTED. PATIENT DOES HAVE SOME CONFUSION AND AT TIMES HALLUCINATES. COMPLAINTS OF ANXIETY ADDRESSED WITH LORAZEPAN Q6. PATIENT HAS BEEN PLEASANT AND COOPERATIVE THROUGHOUT THE SHIFT. SITTER IN PLACE. HOURLY ROUNDS COMPLETED. WILL CONTINUE WITH PLAN OF CARE.
[2019-09-07 20:00] VITALS: BP 147/109
--- NOTE | 2019-09-07 21:29 | NUR ---
Assumed care of patient at 1900. Navigator or nurse from [facility] called to say that they are declining the transfer. He has been very anxious this shift. BP elevated and HR elevated. He was trying to leave and did get into the hallway. Magaly vargas was called but not overhead,the sprayer automatic spray machine was just told to call security. He wasn't combative but he did get into the muhammad and security had to get him back into his room. He is saying that the blanket from home is his brother. He said he needed to get home to take care of kids and needed to call and make sure they are getting to school. He is stuck on the loop that he has to find out about his kids. He wanted me to bring the phone in. I did call the contact number which is Jalil Murdock and she is his mother, she said he's been living with her prior to this hospitalization, she said that he doesn't have any kids. She said that over the weekend she brought him the weighted blanket and his brother had also visited. He may just be getting things mixed up. I told her that we are still looking for placement. All his HS meds were given and tylenol for L leg pain,lorazepam and melatonin. He does have a 1:1 sitter.
--- NOTE | 2019-09-07 23:39 | NUR ---
Patient continues to be a 1:1, he did try to leave the unit again. Magaly Caceres called for the second time this evening. It took 2 security guards, and 1 EVS to get him back in the room. He was very uncooperative stating that he had to leave. One time IM dose of ativan given in rt upper buttocks. 1:1 also had to change to different sitter at this time. New sitter has [address]. Security did stay in the room and secure the situation. Will continue to monitor.
--- NOTE | 2019-09-08 06:07 | NUR ---
Oriented x 1 and forgetful and confused. He has been impulsive, noncooperative and anxious. He has a 1:1 sitter at the bedside. He has to be constantly reminded that he has to stay in bed or at least in the room. As stated in previous notes he was out of his room trying to leave and was not listening to anyone. He could not say where he was or why he was here. BP was very high last evening but he was very agitated. Dr Mercer was notified. Magaly Caceres was called x 2 this shift. He did finally fall asleep around 0300 to 0530. Will continue to monitor.
[2019-09-08 09:01] VITALS: BP 154/103
--- NOTE | 2019-09-08 17:30 | NUR ---
CM FOLLOWED-UP ON REFERRAL FOR INPATIENT PSYCH: -[facility]-'DECLINED YESTERDAY'. -[facility]-'NO MEDS AVAILABLE, AND NONE EXPECTED TOMORROW'. -[facility]-'DECLINED DUE TO CAPABILITY'. [facility](ADMISSIONS) INFORMS 'REVIEWING REFERRAL. NEED AN AFFIDAVIT, AND UPDATD NOTES'. CM FAXED UPDATED NOTES AND AFFIDAVIT, AND INFORMED RN OF WHERE TO CALL TO CHECK ON REFERRAL. CM WILL REMAIN AVAILABLE TO ASSIST AND FOLLOW NEEDED. [facility] PHONE: [phone] FAX: [phone]
--- NOTE | 2019-09-08 19:00 | NUR ---
PATIENT IN 1:1 STATUS THRU SHIFT. PATIENT VERBAL W/ STAFF THIS AM AT BEGINNING OF SHIFT. PATIENT ATTEMPTED TO LEAVE UNIT THIS AFTERNOON, SECURITY HAS BEEN PRESENT WHEN NOTIFIED OF NEED. PATIENT CONFRONTATIONAL, VERBAL, BUT HAS NOT BEEN PHYSICAL W/ STAFF THRU SHIFT. AWAITING PLACEMENT. ~TJRN
[2019-09-08 20:30] VITALS: BP 151/107
--- NOTE | 2019-09-09 04:28 | NUR ---
Spoke with Kvng at [facility] at 2027 regarding transfer to their facility last evening he said that after the K+ replacemnt that he would need documentation that it was given and that he would speeak with his nurses after they recieved it. Information was faxed and no return call. I did call again and talked to Loree at 2124,she stated they had not recieved the info so I did re-fax the info again. At 0000 I did get a return call from Loree after I had left a voicemail stating that I needed a return call to verify that the information was recieved and also that it was discussed with the nurses who would be recieving the patient. Loree did return the call at 0000 and said that they did recieve all the 28 pages I faxed and that at this time they felt that it would be too stressful on the patient,especially since his prior behavior. I did tell her that this shift he has been cooperative. Loree said they would decline the transfer this shift and re-evaluate in the morning.
--- NOTE | 2019-09-09 06:34 | NUR ---
Oriented 2-3 and cooperative. He knew that he was going to be transfered to another facility. He did request anxiety med at bedtime and I did give it again this am. I did tell him that they are going to re evaluate this am on the transfer. He has slept a lot of this shift.
[2019-09-09 10:44] VITALS: BP 137/93
[2019-09-09 13:00] VITALS: BP 149/79
--- NOTE | 2019-09-09 14:06 | NUR ---
CM SPOKE TO INTAKE WITH [facility], AND AFTER MULIPLE CALLS REARDING PT'S CURRENT MENTATION, VITALS, LABS, AND PRN MEDICATIONS GIVEN. [facility] HAS DECIDED TO ACCEPT THE PT. ACCETING PHYSICIAN DR. SMILEY, AND RN TO CALL REPORT TO [facility]. CM INFORMED THE PT AND RN OF THIS INFO AND BOTH ARE IN AGREEMENT. CM COMPLETED PT TRANFER AND EMTALA FORM, AND A COPY OF BOTH ARE ON THE CHART. TAHIRA CONTACTED [facility] TO INFORM OF THE NEED TO TRANSFER THE PATIENT AT 1500. CM WILL REMAIN AVAILABLE TO ASSIST AND FOLLOW NEEDED. [facility] KJ MARIE PH: [phone]
[2019-09-09 14:56] VITALS: BP 137/93
--- NOTE | 2019-09-09 15:45 | NUR ---
PATIENT DISCHARGED TO THE [facility] INPATIENT UNIT. EMS IN TO RECEIVE PATIENT. PATIENT INFORMATION GIVEN TO EMS TEAM. PATIENT SLEPT THRU MOST OF SHIFT. 1:1 STATUS MAINTAINED THRU SHIFT. REPORT CALLED TO FRANK AT [phone]. PATIENT COOPERATIVE THIS AFTERNOON. ALERT AND ORIENTED AT TIME OF DISCHARGE. ESCORTED OFF UNIT PER SHAKIRA Daley/ EMS PERSONNEL. ~TJRN
== END 2019-09-09 15:45 | DRG 917 ==
LOC: M.ERS 18:08 → M.TBA-ER 18:44 → M.ICU 18:44 → M.2W 09-04 16:01 → M.ORTHSURG 09-05 21:42
PROVIDERS: Family Medicine; Internal Medicine; ADMIT Internal Medicine
DX: T43.214A Poisoning by selective serotonin and norepinephrine reuptake inhibitors, undetermined, initial encounter (principal); J96.01 Acute respiratory failure with hypoxia; G92 Toxic encephalopathy; J69.0 Pneumonitis due to inhalation of food and vomit; N17.0 Acute kidney failure with tubular necrosis; G21.0 Malignant neuroleptic syndrome; G25.9 Extrapyramidal and movement disorder, unspecified; R45.851 Suicidal ideations; E44.0 Moderate protein-calorie malnutrition; F32.9 Major depressive disorder, single episode, unspecified; G47.00 Insomnia, unspecified; F10.10 Alcohol abuse, uncomplicated; T50.905A Adverse effect of unspecified drugs, medicaments and biological substances, initial encounter; Y92.89 Other specified places as the place of occurrence of the external cause; F41.1 Generalized anxiety disorder; E87.6 Hypokalemia; Z68.32 Body mass index [BMI] 32.0-32.9, adult